=== PATIENT | male | born 1945 | race Caucasian/White ===

== ENCOUNTER → 2021-09-13 | Outpatient (CLI) | payer MEDICARE, OTHER ==
[~2021-09-13] MED LIST: ASPIRIN 325MG325 MG PO; GLUCOPHAGE500 MG PO; NITRO-DUR1 EACH TOP; NORVASC10 MG PO; OMEGA 3 1,0001 EACH PO; PANTOPRAZOLE SO40 MG PO; ZANTAC150 MG PO; ZESTRIL40 MG PO; ZOCOR20 MG PO; ZYLOPRIM 300 M300 MG PO
== END ==
LOC: US 10:15
DX: N50.82 Scrotal pain (principal); N50.89 Other specified disorders of the male genital organs
CPT/HCPCS: 76870

== ENCOUNTER → 2022-03-24 | Outpatient (CLI) | payer MEDICARE, OTHER ==
[2022-03-24 13:06] LABS: BUN/CREATININE RATIO 13 (0-10)
== END ==
LOC: LAB 12:25
PROVIDERS: Family Medicine
DX: I10 Essential (primary) hypertension (principal); E53.8 Deficiency of other specified B group vitamins; M10.9 Gout, unspecified; E83.42 Hypomagnesemia
CPT/HCPCS: 36415; 80048; 82607; 83735; 84550